=== PATIENT | male | born 1955 | race Caucasian/White ===

== ENCOUNTER 2021-12-11 13:46 | Outpatient (CLI) | payer OTHER, SELFPAY ==
--- NOTE | 2021-12-11 13:15 | DI.RAD_ITS ---
Exam(s) XR STANDING ALIGNMENT EXAM: XR STANDING ALIGNMENT CLINICAL HISTORY: OA L knee. TECHNIQUE: 2D digital imaging was performed. Standing AP views were performed from the pelvis throu gh the ankles. COMPARISON: No exams were available for comparison FINDINGS: BONES: No acute fracture is present. No bony destructive lesion is seen. Leg length discrepancy: 14 millimeters with the right femoral head projecting superior to the left JOINTS: Knees: Right knee prosthesis. Severe degenerative changes of the medial femoral tibial joint of the left knee with varus angulation. The ankle joints are unremarkable. The hip joints show acetabular spurring.. SOFT TISSUE: Normal. IMPRESSION: Severe degenerative changes of the left knee. leg length discrepancy. DATA REPOSITORY: RADIATION DOSE DELIVERED:
== END 2021-12-11 13:47 | disposition home or self-care (01) ==
LOC: DIORS 13:46
PROVIDERS: PCP Family Medicine; Referring Provider Family Medicine; Visit Provider Physician Assistant
DX: M17.12 Unilateral primary osteoarthritis, left knee (principal); M21.70 Unequal limb length (acquired), unspecified site
CPT/HCPCS: 77073

== ENCOUNTER 2021-12-25 02:57 | Outpatient (CLI) | payer OTHER, SELFPAY ==
[2021-12-25 09:59] LABS: HCT 40.9 % (40.0-50.0); HGB 13.8 g/dL (13.5-17.5); MCH 30.7 pg (27.0-33.0); MCHC 33.7 % (32.0-36.0); MCV 91 fL (80-95); MPV 9.7 fL (8.0-11.0); Platelet Count 235 10^3/uL (130-400); RDW 13.2 % (11.8-14.1); RDW-SD 45.1 fL
== END 2021-12-25 02:58 | disposition home or self-care (01) ==
LOC: LBO 02:57
PROVIDERS: PCP Family Medicine; Visit Provider Student in an Organized Health Care Education/Training Program
DX: M25.562 Pain in left knee (principal); M17.12 Unilateral primary osteoarthritis, left knee; Z01.818 Encounter for other preprocedural examination; Z01.812 Encounter for preprocedural laboratory examination
CPT/HCPCS: 36415; 85027

== ENCOUNTER 2021-12-26 06:01 | Day surgery (SDC) | payer OTHER, SELFPAY ==
[2021-12-26] VITALS (12 sets, daily range): BP systolic 113–145; BP diastolic 54–89; PULSE 65–92; RESP 10–23; TEMP 36.3–36.6; O2SAT 95–100; BMI 37.5
[2021-12-26] MEDS: Acetaminophen 500 MG TAB 1000 MG PO (06:29)
[2021-12-26] MEDS: Gabapentin 300 MG CAP PO (06:29)
[2021-12-26] MEDS: Celecoxib 200 MG CAP 400 MG PO (06:29)
--- NOTE | 2021-12-26 06:45 | W.ANESPRE ---
General Info Date of Service Date Performed: 12/26/21 Height: 5 ft 9 in Weight: 115.4 kg Body Mass Index (BMI): 37.5 Surgical Procedure: Operation Date: 12/26/21 07:40 Proposed Procedure Side Surgeon p Knee Total Arthroplasty Cementless CR Left Rafael Beaver MD Meds Allergies and Home Medications Allergies Allergy/AdvReac Type Severity Reaction Status Date / Time No Known Allergies Allergy Verified 12/26/21 06:12 Home Medication Medication Instructions Recorded irbesartan 150 mg tablet 150 mg PO DAILY 08/21/21 Hospital Bed #1 ea 12/18/21 acetaminophen 500 mg tablet 1,000 mg PO Q8H PRN pain #90 tabs 12/26/21 celecoxib 200 mg capsule 200 mg PO BID PRN pain #60 caps 12/26/21 dexamethasone 4 mg tablet 4 mg PO DAILY #2 tabs 12/26/21 gabapentin 300 mg capsule 300 mg PO QHS #14 caps 12/26/21 oxycodone 5 mg tablet 5 mg PO Q4H #18 tabs 12/26/21 pantoprazole 40 mg tablet,delayed 40 mg PO DAILY #30 tabs 12/26/21 release Current Visit Medications: Current Medications Generic Name Dose Route Start Last Admin Trade Name Freq PRN Reason Stop Dose Admin Acetaminophen 1,000 mg 12/26/21 06:00 12/26/21 06:29 Acetaminophen 500 Mg Tab PO 12/26/21 16:00 1,000 mg PREOP CALEB Administration Celecoxib 400 mg 12/26/21 06:00 12/26/21 06:29 Celecoxib 200 Mg Cap PO 12/26/21 16:00 400 mg PREOP CALEB Administration Gabapentin 300 mg 12/26/21 06:00 12/26/21 06:29 Gabapentin 300 Mg Cap PO 12/26/21 16:00 300 mg PREOP CALEB Administration Tranexamic Acid 1,000 mg/ 60 mls @ 360 mls/hr 12/26/21 06:00 Sodium Chloride IVPB 12/26/21 16:00 PREOP CALEB Tranexamic Acid 1,000 mg/ 60 mls @ 360 mls/hr 12/26/21 06:00 Sodium Chloride IVPB 12/26/21 16:00 DIRECTED CALBE Ringer's Solution 1,000 mls @ 80 mls/hr 12/26/21 06:00 IV 01/24/22 23:59 INFUSION CALEB Cefazolin Sodium/Dextrose 2 gm in 50 mls @ 100 mls/hr 12/26/21 06:00 Ancef Duplex IVPB 01/24/22 23:59 PREOP CALEB IV Miscellaneous Supplies 1 each 12/26/21 06:00 Iv Access IV 01/24/22 23:59 DIRECTED CALEB Sodium Chloride 0 ml 12/26/21 06:00 Normal Saline Flush 10 Ml Syr IV 01/24/22 23:59 PRN PRN Sodium Chloride 0 ml 12/26/21 06:00 Normal Saline 10 Ml Vial IJ 01/24/22 23:59 DIRECTED PRN Sterile Water 0 ml 12/26/21 06:00 Water,Injection,Sterile 10 Ml Vial IJ 01/24/22 23:59 DIRECTED PRN PFSH Active Problems Active Problems: Problem Status Onset Code Hypertension I10 Arthritis of left knee M17.12 Medical History Medical History (Updated 12/26/21 @ 06:14 by Rhina Valdes) Hx of essential hypertension Hx of spinal stenosis Surgical History Surgical History (Updated 12/26/21 @ 06:13 by Rhina Valdes) History of back surgery x2 metal plate in back, per pt. states disc issues, i believe i have spinal stenosis 2018 History of right knee joint replacement Hx of colonoscopy Tobacco Smoking/Tobacco Use Status: Never Second hand exposure: No Alcohol Alcohol Intake: current Alcohol intake frequency: 3 or more drinks per day Alcohol type: beer Substance Use Substance use: Never Substance use type: does not use Details: alcohol: t-1, 3 beers, tequila, red wine Vital Signs and Lab Results Vital Signs Most Recent Vital Signs in EMR: Most Recent Vital Signs Temp Pulse Resp BP Pulse Ox 36.6 C 85 18 143/89 H 99 12/26/21 06:18 12/26/21 06:18 12/26/21 06:18 12/26/21 06:18 12/26/21 06:18 Lab Results Blood Type / Crossmatch: No Data to Display Complete Blood Count: White Blood Count 6.60 10^3/uL (4.4-10.8) 12/25/21 09:39 Red Blood Count 4.50 10^6/uL (4.36-5.78) 12/25/21 09:39 Hemoglobin 13.8 g/dL (13.5-17.5) 12/25/21 09:39 Hematocrit 40.9 % (40.0-50.0) 12/25/21 09:39 Platelet Count 235 10^3/uL (130-400) 12/25/21 09:39 Complete Metabolic Panel: No Data to Display Liver Function Panel: No Data to Display Coagulation Panel: No Data to Display Cardiac Panel: No Data to Display Arterial Blood Gas: No Data to Display Venous Blood Gas: No Data to Display Pancreas Panel: No Data to Display Thyroid Panel: No Data to Display Infectious Disease: No Data to Display Blood Cultures: No Data to Display Toxicology Panel: No Data to Display Anesthesia Assessment and Plan Anesthesia History Personal History: No History of Anesthesia Complications Family History: No Family History of Anesthesia Complications Exercise Tolerance Exercise Tolerance: Metabolic Equivalents>4 Pertinent Negatives Pertinent Negatives: No Symptoms of GERD, No Major Cardiovascular Symptoms or Complaints and No Major Pulmonary Symptoms or Complaints Cardiac & Pulmonary Exam Cardiac Exam: Normal S1/S2 Heart Sounds Pulmonary Exam: Clear Bilateral Breath Sounds Implantable Cardiac Device Does patient have a Pacemaker or an ICD?: No Airway Exam Known Difficult Airway: No Mallampati Class: 1 Mouth Opening: Normal (> 3cm) Thyromental Distance: Greater than 3 cm Facial Hair: Full Gambino Neck Range of Motion: Full ROM Neck Circumference: Normal Teeth Condition: Generalized Poor Dentition ASA Classification ASA Score: ASA 2 Emergency Case?: No NPO Status NPO Status: NPO Clears >2 hours, Solids >8 hours Anesthesia Plan Resuscitation Status: Full Code Anesthesia Technique: Spinal Anesthesia Airway Planned: Natural Airway Pain Management: Surgeon and patient request nerve block Monitors Used: Standard Monitors
[2021-12-26] MEDS: Lactated Ringers 1,000 ML 80 ML IV (06:55)
--- NOTE | 2021-12-26 07:10 | W.PM.DSUDISC ---
Discharge Plan Disposition Patient Disposition: HOME Condition: Good Discharge Details Reason For Visit: Left Knee DJD Attending Provider: Rafael Beaver Primary Care Provider: Opal Arana Meds and New Rx's Prescriptions: New acetaminophen 500 mg tablet 1,000 mg PO Q8H PRN (Reason: pain) Qty: 90 3RF celecoxib 200 mg capsule 200 mg PO BID PRN (Reason: pain) Qty: 60 1RF pantoprazole 40 mg tablet,delayed release (DR/EC) 40 mg PO DAILY Qty: 30 0RF dexamethasone 4 mg tablet 4 mg PO DAILY Qty: 2 0RF Rx Instructions: Starting Post-Operative Day #1 (Day after surgery) gabapentin 300 mg capsule 300 mg PO QHS Qty: 14 0RF oxycodone 5 mg tablet 5 mg PO Q4H Qty: 18 0RF Continued irbesartan 150 mg tablet 150 mg PO DAILY No Action (DME) Hospital Bed See Rx Instructions .ROUTE .MEDSUPPLY Qty: 1 0RF Rx Instructions: Please deliver hospital bed to assist with mobilization and bed transfers after knee replacement for weakness and ambulatory dysfunction. Discharge Instructions Additional Instructions: Total Knee Discharge Instructions Activity: The most important activity is to walk and to work on gentle motion (both flexion and extension). You should try to take short walks a few times a day. It is important that when resting you work on keeping the knee straight. Avoid putting a pillow behind the knee as this will encourage flexion. Work on range of motion exercises as provided by Physical Therapy. - Start outpatient physical therapy within 2 weeks. - You should wear the NIGHAT hose on both legs for 2 weeks. You may remove these at night. You may also use any compression sock in place of the NIGHAT hose. - Utilize [employer] to review exercises, see videos on exercises and obtain basic information pertaining to your surgery and your recovery. Dressing: Remove the Edgar wrap by 2 days after your surgery and put on the NIGHAT stocking given to you from the hospital. Keep the surgical dressing (underneath the EDGAR wrap) in place for at least one week. After the first week it may be removed and replaced with light gauze and tape or nothing. The wound and dressing may get wet after 3 days but avoid soaking the dressing or otherwise it will need to be changed. Many people prefer covering the dressing with cling wrap (saran wrap) to minimize it from getting soaked. If it gets wet, just pat dry. If it starts to peel off then it will need to be changed. Medications: - You should take Tylenol and anti-inflammatory Celebrex as your primary pain control medications. If the Celebrex is too expensive or not covered, please call the office for another alternative (Advil/Ibuprofen or Naproxen/Aleve) - You have been prescribed a stronger pain medication Oxycodone for breakthrough pain, take as needed as prescribed. - You have also been prescribed a stomach acid reduction agent Pantoprozole to help reduce stomach acid and reflux. - You have been prescribed Gabapentin to take at night for restlessness and nerve pain. - You will be taking Aspirin 81mg twice a day for DVT prevention unless instructed otherwise. - You have also been prescribed Decadron to take to control post-operative nausea and pain. You will start this tomorrow. - If you have constipation you should take Colace or Miralax (both [id number]). It takes most people 3-4 days to have a bowel movement. Follow-up: 2 weeks If you have any acute concerns or questions, please do not hesitate to contact the office at [phone]. You may contact Dr. Beaver with any questions after hours through the hospital at [phone] or on his cell phone at [phone]. Referrals: Rafael Beaver MD [ [facility] STAFF PHYSICIAN] - Equipment/Supplies: Walker Activity:: Activity as Tolerated Remove Dressings/Wound Care:: Do Not Remove Shower/Bathe:: 72 hours and Cover Diet:: As Tolerated Discharge Orders Discharge Orders: Discharge Order (Routine); Ordered 12/26/21 Ordered By: Rafael Beaver
[2021-12-26] MEDS: ceFAZolin 2 GM/50 ML BAG IVPB (07:39)
--- NOTE | 2021-12-26 08:17 | W.ANESNERVE ---
Nerve Block Single Injection Procedure Date and Time Date Performed: 12/26/21 Procedure Start: 07:20 Location Where Procedure Performed Procedure Location: Day Surgery Unit Reason Performed: Postoperative Analgesia Requesting Provider: Rafael Beaver Timeout Performed Timeout Performed: Yes Monitoring Used ECG, Blood Pressure, SpO2 and See EMR for corresponding vital signs Sterility Sterility: Hand Hygiene, Surgical Cap, Surgical Mask, Sterile Gloves, Eye Protection and Chlorhexidine Sedation Given During Procedure Sedation Given (Indicate Dose Given): No Sedation given Patient Mental Status Patient Mental Status: Awake Nerve Block 1st Nerve Block: Laterality: Left Block Type: Adductor Canal Needle / Catheter Used: 100mm SonoPlex II Local Anesthetic Bolus (Indicate Dose Given): Lidocaine used for local infiltration of skin and Bupivacaine 0.25% Dose:: 10ml Additives (Indicate Dose Given): None Ultrasound: Sterile probe cover and gel used Ultrasound Image Saved?: Yes Nerve Stimulator: Not Used Paresthesia: None Procedure Tolerated: No Complications Procedure Outcome: Successful Performed By: Maki Kamara Supervised By: Joy Mclean
[2021-12-26] MEDS: HYDROmorphone 2 MG/ML SYR IVP ×4 (10:01→10:42)
[2021-12-26] MEDS: Normal Saline 10 ML VIAL IJ (10:02)
[2021-12-26] MEDS: oxyCODONE 5 MG TAB PO ×2 (11:11→12:29)
--- NOTE | 2021-12-26 12:29 | IN_ITS ---
PT Notes Visit Reasons: Left Knee DJD Inpatient Physical Therapy Evaluation Date: 12/26/21 Referring Doctor: Dr. Beaver PT Orders: PT CONSULT: left knee OA, s/p TKA Precautions: standard Patient Profile/Admitting Diagnosis: PT consult requested in Day Surgery for patient with left knee OA, s/p left TKA, post op day 0. PMHX: s/p right TKA Social History/Home Situation: Lives in multilevel home with his . His sister, an RN, is also staying with him upon discharge to assist with his needs. He has a hospital bed on the lower level for the time being, as well as an elevated toilet seat. Plans to enter the home via 2 steps, then remain on single level. Equipment Owned/DME: FWW, elevated toilet seat, hospital bed Subjective: Abdirashid states that his knee is quite painful. He recalls a lot of post-op pain on his right side, as well. Feels comfortable getting up and trying to walk. Objective: General Observation: Resting in bed, IV in LUE. Mental Status: A&Ox3. Pleasant and cooperative throughout. Pain: 7/10 left knee ROM: Right Upper Extremity: WFL Left Upper Extremity: WFL Right Lower Extremity: lacks TKE on the right. Demonstrates active flexion to 90+ degrees. Left Lower Extremity: -5 extension, with pain with active quad sets. Knee flexion to 85 degrees actively. Strength: Right Upper Extremity: WFL Left Upper Extremity: WFL Right Lower Extremity: WFL Left Lower Extremity: Able to demonstrate active SLR with minor extension lag. Able to pump ankles and wiggle toes. Sensation: intact distally Bed Mobility/Transfers: supine-sit: independent sit-stand: independent stand-sit: independent Gait: Ambulates 30'x4 with FWW and CGA to supervision. Stairs: manages 6 therapeutic stairs x 2, bilat rails, CGA, and cues for technique. Balance: Static Sitting: normal Dynamic Sitting: normal Static Standing: good Dynamic Standing: fair Informed Consent/Education: Patient instructed in purpose of PT consult and plan of care. Treatment: Initial Evaluation ([id number]) Gait Training: Gait and transfer training stair training Therapeutic Exercises: Instruction in HEP Assessment: Patient is a 66 year old male referred to physical therapy services with the diagnosis of left knee OA, s/p TKA, post op day 0. Patient presents with clinical signs and symptoms consistent with diagnosis. After gait and stair training, he demonstrates safety and mobility sufficient to allow for safe return home with family support. He is planning to participate in outpatient PT [place] in [place], which he'll be beginning in 2 weeks. He currently demonstrates the following impairment level findings: 1. decreased left knee ROM 2. decreased LLE strength 3. post-op pain Impairments are contributing to the following functional limitations: 1. limited tolerance to household ambulation 2. decreased independence with stair management 3. poorly controlled pain Patient is assessed as Low [id number] complexity based on the following: History: 66 year old patient with diagnosis of left knee OA, s/p TKA, post op day 0. No complicating factors. Examination: functional limitations as above Presentation: stable Decision Making: low complexity Plan of Care/Treatment Plan: D/C home with family support. DISCHARGE RECOMMENDATIONS: Home with outpatient PT TREATMENT CODE/TIME: 12:00-12:25 ([id number]) Rosario Carter, PT, DPT [facility]
--- NOTE | 2021-12-26 13:48 | W.ANESPOSTOP ---
Postoperative Evaluation Date, Time and Location Date Performed: 12/26/21 Time Performed: 13:38 Patient Location: Day Surgery Unit Vital Signs Most Recent Imported Vital Signs: Most Recent Vital Signs Temp Pulse Resp BP Pulse Ox 36.5 C 84 16 131/76 96 12/26/21 11:50 12/26/21 11:50 12/26/21 11:50 12/26/21 11:50 12/26/21 11:50 Pain Score Most Recent Pain Score: Most Recent Pain Score Pain Level [Left Anterior Knee 6 12/26/21 10:56 ] Pain Level 7 12/26/21 11:50 Assessment Mental Status: Awake (Alert & Oriented to Patient Baseline) Airway and Respiratory Function: Patent airway with normal (patient baseline) respiratory exam Cardiovascular Function: Hemodynamically Stable Hydration Status: Adequately Hydrated Nausea & Vomiting: No Nausea or Vomiting Pain: Pain is tolerable per patient Peripheral Nerve Block: Regional nerve block not resolved at time of post operative discharge
--- NOTE | 2021-12-26 21:10 | ROE_ITS ---
Date of service: 12/26/21 Time of Service: 09:30 Operative Note Operative Note DATE OF PROCEDURE: 12/26/21 PRE-OP DIAGNOSIS: Left Knee Osteoarthritis POST-OP DIAGNOSIS: same PROCEDURE: Left Total Knee Replacement SURGEON: Rafael Beaver ANESTHESIA TYPE: Spinal Refer to Anesthesia Record ESTIMATED BLOOD LOSS: 300 PATHOLOGY: none sent TOURNIQUET TIME: 0 COMPLICATIONS: None Patient was transported to: PACU Patient's condition: stable Implants: 1. Depuy Attune Cementless Cruciate Retaining Femoral Component, Size 8 2. Depuy Attune Cementless Rotating Platform Tibial Component, Size 8 3. Depuy Attune 8x8 PS/RP Poly 4. Depuy Attune Patellar Component, Size 38 Indications: I have seen Ramon in clinic for symptoms of knee arthritis, confirmed with radiographic findings. Ramon has exhausted nonoperative methods and was having significant limitations in daily function and desired better function and less pain. I discussed the technical details of a knee replacement. I explained the risks of the procedure to include, but not limited to, bleeding, infection, pain , stiffness, fracture, damage to nerves and vessels, damage to muscles and tendons, loosening, need for repeat procedure, blood clot and cardiopulmonary demise. Despite these risks, he elected to proceed. Findings: There was significant signs of arthritis throughout the knee with large osteophytes throughout. There seemed to be some abnormal rotation of the distal femur. Procedure Description: Ramon was greeted in the preoperative holding area where the correct side was identified and marked. The consent was reviewed with the patient and signed. The history and physical was updated. All questions were answered. Preoperative medications were administered: Acetaminophen 1000mg, Celebrex 4 00mg, and Gabapentin 300mg. An adductor canal block was then administered by the anesthesia team in the PACU. Ramon was taken back to the operating room. A spinal anesthestic was then administered. The patient was placed into the supine position on the operating room table. A nonsterile tourniquet was placed high onto the leg but only used for cementing. Posts were placed for positioning during the procedure. All bony prominences were well padded. Prophylactic antibiotics in the form of Cefazolin were administered. 1g of Tranxemic Acid was given intravenously within 30 minutes of incision. The left leg was then prepped with Chloraprep and draped in a standard fashion with impervious stockinette. A second prep with Chloraprep was performed prior to application of Iodine impregnated skin protection. A timeout to confirm correct identity, side and site, procedure, allergies, anesthesia, and medical concerns was performed. With the knee in some flexion, a midline incision was made overlying the knee. Full thickness skin flaps were raised once the extensor mechanism was encountered. These were raised medially and laterally. Any bleeding was controlled with electrocautery. Once the extensor mechanism was fully exposed, a medial parapatellar arthrotomy was performed in a flexed position. All bleeding from the arthrotomy and the geniculate arteries was coagulated. A medial subperiosteal peel was performed with electrocautery to the midcoronal plane. Due to the significant varus deformity the entire medial tibial plateau was exposed. The fat pad was removed while keeping the patellar tendon protected. The anterior distal femur synovium was removed for later visualization. The ACL and PCL were resected and the anterior horn of the lateral meniscus was transected. The knee was then flexed with the patella everted. Large osteophytes from the tibia were removed. Large osteophytes from the femur were removed. Using a step drill, and based on preoperative templating, the femoral canal was entered. This was done with a step drill without any difficulty. The intramedullary distal femoral cut guide was inserted, set to a 6 degree valgus cut and 9mm cut thickness. There was some hypoplasia of the lateral femoral condyle and any remnant cartilage of the medial femoral condyle was removed for appropriate thickness. The distal femoral cut guide was then held in position and pinned. With the soft tissues protected, the distal cut was performed. This was passed over a few times to ensure a planar cut. I then turned attention to the tibia. The extramedullary guide was placed onto the leg. The distal aspect was slid medial to adjust for position of center of ankle and stay in line with shaft of the tibia. Approximately 5 degrees of posterior slope was kept in the proximal cutting guide. The center of the guide was aligned with the PCL. The stylus was used to assess cut thickness. The medial side, most involved side, was set for a 4mm cut. This was then held in position and pinned into place with 2 additional pins and a cross pin for stability. The medial and lateral collateral ligaments were protected and the cut was performed. With this completed, it was assessed and noted to be of appropriate dimensions. The guide was removed. A spacer block was inserted and the knee was brought into extension. The 8mm spacer block provided full extension, without hyperextension and with stability of both the medial and lateral collateral ligaments was assessed. The pins from the femur and the tibia were then removed. The distal femur was then sized. The anterior stylus was placed onto the lateral ridge of the anterior femur. This indicated a size 8 femur. The external rotation of the guide was adjusted to 7 degrees to match the epicondylar axis, perpendicular to [place]?s line. If anything, this seemed to slightly externally rotate compared to the epicondylar axis. However, this seemed to still leave the lateral flexion gap lax. The 4-in-1 cutting guide was the placed. The posterior medial femur cut was evaluated and appeared of good thickness. The spacer block was inserted underneath the cutting guide and stability was confirmed in 90 degrees of flexion. An eran wing was used to confirm appropriate position of the anterior cut to avoid notching. This cutting guide was ensured to be flush on the cut surface and then pinned into place with headed pins. While protecting the soft tissues, quad tendon, and collateral ligaments, the anterior and posterior cuts were performed with a saw. The central two pins were removed and the posterior and anterior chamfers were cut next. The notch-cutting guide was placed. This was pinned to lateralize the femoral component as much as possible while keeping it flush on the cut surface. This was then pinned into position. A reciprocating saw was used to make the notch cut. A rasp smoothed the cut surfaces. The medial and lateral menisci were removed. A trial femoral component was then inserted, impacted down to the cut surfaces, and the lug holes were drilled. A provisional trial tibial component was placed and the knee was brought through range of motion. The polyethylene was trialed until there was good flexion and extension with excellent stability to the medial and lateral collaterals. The patella was tracking without thumbs. A size 8mm polyethylene component provided the best range of motion and stability with less than 2mm gapping with medial and lateral stress and full extension without significant hyperextension. However, there was some continued opening of the lateral spae in flexion, although excellent in extension with tight MCL complex without valgus instability in extension and flexion. The tibial cut surface was fully exposed. The tibia was then sized as a 8. The tibia had been previously marked during trialing to correspond to the center of the tibial component to help with rotation. The trial was aligned to this stacey, approximately rotated to the medial 1/3rd of the tibial tubercle. The trial was pinned into place. The tibia was prepared with a reamer and a keel punch and lug holes. The knee was then brought into extension and the patella was measured as 28mm. Using the patellar clamp and cut guide, this was resected to a flat surface with at least 13mm of thickness remaining. The size 35 patella fit the best. This was oriented and then clamped into position. The lugs were drilled. The trial components were removed. The final components were opened on the back table. The periosteal and capsular tissues, especially posteriorly, around the knee were then systematically injected with a periarticular cocktail consisting of 246mg of Ropivacaine, 0.5mg of Epinephrine, 0.08mg of Clonidine, and 30mg of Ketorolac, diluted to 100cc. On the back table, with the implants opened, the cement was mixed. One batch of high viscosity cement was prepared with vacuum assistance. After the cement was ready a small amount was placed on the cut surface of the patella and the patellar button was clamped into position and held. While the cement was hardening, the cementless knee components were placed. Starting with the tibial component, the tibia was subluxed anteriorly and the lug holes of the component were lined up. The tibia was then impacted with an impactor and mallet until the tibial component was in contact with the tibia. Then, the femoral component was inserted. The lug holes were aligned and the component was impacted into position. The knee was irrigated with Surgiphor Betadine solution. This was allowed to sit in the knee for 3 minutes and then it was irrigated out with saline. After the cement had finally cured, approximately 15min, the clamp was removed from the patella and the knee was taken through range of motion. The patella was tracking with a no-thumbs technique. The trial poly was removed and the real component inserted. The capsule was then reapproximated with a No. 1 Vicryl at multiple locations. The capsule was finally closed with a No. 2 Stratafix, barbed suture. The second dosing of 1g TXA was started. Deep tissues were then reapproximated with 0 Vicryl and 2-0 Vicryl. The skin was closed with a running 3-0 Monocryl in a subcuticular fashion. This was reinforced with skin glue. A Mepilex silver dressing was applied along with a [id number] CORI wrap. A CryoCuff was applied. Ramon was transferred to the hospital bed without difficulty an suffering no apparent complication. Ramon has a good prognosis. Physical therapy will start today and without restrictions, weight-bearing as tolerated. Aspirin 81mg BID will be used for DVT prophylaxis.
== END 2021-12-26 13:48 | disposition home or self-care (01) ==
PROVIDERS: PCP Family Medicine; Visit Provider Student in an Organized Health Care Education/Training Program
PROC: (CPT 27447; principal; 2021-12-26 07:30)
DX: M17.12 Unilateral primary osteoarthritis, left knee (principal); I10 Essential (primary) hypertension
CPT/HCPCS: 27447; 76942; 97161; J0690; J1100; J1170; J2250; J2370; J2405; J2704

== ENCOUNTER 2022-01-08 13:40 | Outpatient (CLI) | payer OTHER, SELFPAY ==
--- NOTE | 2022-01-08 12:58 | DI.RAD_ITS ---
Exam(s) XR KNEE LT 1V XR STANDING ALIGNMENT EXAM: XR STANDING ALIGNMENT CLINICAL HISTORY: L TKR. TECHNIQUE: 2D digital imaging was performed. Standing AP views were performed from the pelvis throu gh the ankles. COMPARISON: No exams were available for comparison FINDINGS: BONES: No acute fracture is present. No bony destructive lesion is seen. Leg length discrepancy: Mild overall leg length discrepancy with the left femoral head projecting 6- 7 millimeters inferior to the right. JOINTS: Knees: Bilateral total knee prostheses. The ankle joints show spurring at the medial malleoli. Mild medial joint space narrowing. The hip joints show mild acetabular spurring.. SOFT TISSUE: Normal. IMPRESSION: Bilateral total knee prostheses. Mild leg length discrepancy. DATA REPOSITORY: RADIATION DOSE DELIVERED:
== END 2022-01-08 13:41 | disposition home or self-care (01) ==
LOC: DIORS 13:40
PROVIDERS: PCP Family Medicine; Referring Provider Family Medicine; Visit Provider Physician Assistant
DX: Z96.653 Presence of artificial knee joint, bilateral (principal)
CPT/HCPCS: 73560; 77073

== ENCOUNTER 2022-12-31 15:58 | Outpatient (CLI) | payer OTHER, SELFPAY ==
--- NOTE | 2022-12-31 13:15 | DI.RAD_ITS ---
Exam(s) XR KNEE LT 2V AP,LAT EXAM: XR KNEE LT 2V AP,LAT CLINICAL HISTORY: YEARLY F/U LEFT TKR. TECHNIQUE: 2D digital imaging was performed. Two images were obtained. AP and lateral views were ob tained. COMPARISON: CR XR STANDING ALIGNMENT from 01/08/2022 CR XR KNEE LT 1V from 01/08/2022 FINDINGS: BONES: There are stable post operative changes of a left total knee replacement present. No fracture or dislocation. JOINTS: The orthopedic hardware is in good position. No evidence of hardware loosening. SOFT TISSUE: Mild atherosclerosis. IMPRESSION: Stable postoperative changes. DATA REPOSITORY: RADIATION DOSE DELIVERED:
== END 2022-12-31 15:59 | disposition home or self-care (01) ==
LOC: DIORS 15:59
PROVIDERS: PCP Family Medicine; Referring Provider Family Medicine; Visit Provider Student in an Organized Health Care Education/Training Program
DX: Z96.652 Presence of left artificial knee joint (principal); Z47.1 Aftercare following joint replacement surgery
CPT/HCPCS: 73560